=== PATIENT | male | born 1960 | race Caucasian/White ===

== ENCOUNTER 2017-01-06 08:34 | Emergency (ER) | payer OTHER ==
[~2017-01-06] VITALS: Ht 180.3 cm; Wt 104.5 kg
[2017-01-06 08:58] VITALS: BP 154/102; PULSE 75; RESP 15; O2SAT 100
--- NOTE | 2017-01-06 09:22 | ED.REPORT ---
HPI-Back Pain 40 and Over Date of Service Jan 06, 2017 ED Provider: Toan Luke MD 56 year old male with a remote history of L1-L3 spinous process fractures 25 years ago and recurrent exacerbation presents to the ER accompanied by his with acute on chronic back pain onset last night while putting lights on his trailer. He states that this activity involved getting on and off his knees, bending, crawling on the ground, laying under the trailer, for about 3 hours. Symptoms have worsened over night with increasingly frequent episodes of muscle spasm and stiffness. Patient denies numbness and weakness of the extremities. Typically he is able to manage his pain at home, but symptoms today are far more severe than his usual exacerbations. Nursing Notes Stated Complaint: SEVERE BACK PAIN/SPASMS Chief Complaint: Back Pain or Injury Nursing Notes Reviewed: Yes Allergies: Coded Allergies: No Known Allergies (Unverified Allergy, Unknown, 01/06/17) Scheduled PRN Cyclobenzaprine (Cyclobenzaprine) 5 Mg Tablet 5 MG PO HS PRN PRN Spasm General Time Seen by MD: 09:21 Chief Complaint Back pain, Muscle spasm Hx Obtained From: Patient Arrived By: Walk-in Sudden in Onset?: Yes Onset Occurred: Yesterday Symptom Duration: Since onset Caused by: Aggravated old injury Location: : Spinal lumbar area Quality: Painful Severity: Current: Severe Severity: Maximum: Severe Associated with: Denies: Inability to walk, Incontinence bladder, Incontinence bowel, Numbness both low ext, Weakness both lower ext Pertinent Negative: Pt denies other symptoms Exacerbated by: Bending, Movement, Twisting Pertinent Negative: Relieved by nothing Similar Sx Previous: Yes Past Medical History Past Medical History 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 Physical Exam Initial Vital Signs Vital Signs (First) Date Time Temp Pulse Resp B/P Pulse Ox O2 Delivery O2 Flow Rate FiO2 01/06/17 08:58 36.2 75 15 154/102 100 Room Air Initial VS: Reviewed Head / Eyes: Atraumatic, Normocephalic Neck: Supple, Non-tender, Full range of motion Extremities: Vascular intact, Neuro intact, No swelling, No tenderness Skin: Warm, Dry, No cyanosis Psychiatric: Mood/affect normal, Behavior normal, Normal thought content General/Constitutional: Awake, Alert, Well developed, Well nourished Appearance / Presentation: Positive: In pain, Uncomfortable Respiratory / Chest: Breath sounds NL, Breath sounds = bilat, No respiratory distress, No rales, No rhonchi, No wheezing Cardiovascular: Heart rate NL, Regular rhythm, Heart sounds NL, No murmurs, Peripheral circulation NL Abdomen: Soft, Non-tender, No guarding, No rebound, No distention, No palpable mass, No pulsatile mass Back: Full range of motion, No midline vertebral tend Flank / Spine / Paraspinal: Positive: Lumbar paraspinal tend... (Left, Diffuse) Neurologic: Oriented X3, Speech NL, No motor deficits, No sensory deficits, Reflexes equal bilat Re-Eval/Medical Decision Med Decision/Clinical Course 56 year old male with a remote history of L1-L3 spinous process fractures 25 years ago and recurrent exacerbation presents to the ER accompanied by his with acute on chronic back pain onset last night while putting lights on his trailer. He states that this activity involved getting on and off his knees, bending, crawling on the ground, laying under the trailer, for about 3 hours. Symptoms have worsened over night with increasingly frequent episodes of muscle spasm and stiffness. Daily received, the patient is afebrile stable vital signs and in no apparent distress. Patient was treated with 10mg Flexeril and 30 of intramuscular Toradol. He reported moderate improvement. Our primary and secondary assessment reveals an awake, alert patient in no acute distress. Hemodynamically stable and afebrile. Exam reveals normal neurologic exam of the lower extremities. Given this immunocompetent, afebrile, patient's history and exam, suspect muscle strain or spasm. No concerning signs or symptoms suggestive of cauda equina, cord compression, epidural abscess or other neurologic emergency. History not suggestive of referred intraabdominal pathology or vascular emergency. There is no history of significant trauma, fever, incontinence, unexplained weight loss, cancer history, long-term steroid use or IV drug use. I do not feel imaging is warranted at this time. Given the patient's workup, feel they are safe for discharge with conservative management. I have prescribed Flexeril, ibuprofen and have discussed with the patient results of workup, indications for return including: motor weakness in the lower extremities and/or bowel or bladder incontinence. Also emphasized the need for PCP follow up. They understand and agree with the plan. Re-Evaluation/Progress : Time of Eval: 10:49 Re-Evaluation/Progress Note: Discussed physical examination findings and plan to discharge. Patient is amenable to the plan. Return precautions given. All other questions addressed. Counseled Regarding: Diagnosis, Need for follow-up, When/why to return to ED Discharge & Departure Impression: Primary Impression: Low back pain Chronicity: acute Back pain laterality: unspecified Sciatica presence: without sciatica Qualified Code: M54.5 - Low back pain Additional Impressions: History of back injury Muscle spasm of back Disposition: Home Discharge Condition All VS Reviewed: Yes Condition: Stable Patient Instructions: Low Back Strain (ED) Additional Instructions: Thank you for seeking care at emergency room. It is difficult for us to make definitive diagnoses in the ED but we believe that you are experiencing exacerbation of chronic back pain. Our primary goal today in the ED was to evaluate you for any life-threatening conditions. Your evaluation was reassuring. You will be discharged with a prescription for Flexeril. Please take as directed. Do not consume alcohol or drive while taking Flexeril. Take ibuprofen 600mg three times daily for pain. You can continue to alternate hot and cold packs to relieve symptoms.. You should follow-up with your primary doctor this week. You should return to the ED immediately if you develop worsening pain, worsening weakness of your arms or legs, numbness of the groin area, incontinence of urine or stool, or any other concerning signs or symptoms. Thank you for letting us partake in your care today. Referrals: Luis Antonio Faye MD (PCP) [facility] Portions of this note were transcribed by Jolynn Cr. I, Dr. Luke, personally performed the history, physical exam and medical decision-making; I reviewed and confirmed the accuracy of the information in the transcribed note. Signed by: Tegan Ocasio, 01/06/2017 and 11:07 copies to: Luis Antonio Faye MD, Beck O MD Jan 06, 2017 09:22 JOLYNN CR Jan 06, 2017 10:31
[2017-01-06] MEDS ORDERED: CYCL5TAB PO (10:28)
[2017-01-06 11:17] VITALS: BP 141/94; PULSE 65; RESP 16; O2SAT 98
== END 2017-01-06 11:22 | disposition home or self-care (01) ==
LOC: SED 08:34
DX: M54.5 Low back pain (principal); M62.830 Muscle spasm of back; I10 Essential (primary) hypertension; Z87.828 Personal history of other (healed) physical injury and trauma; Z87.891 Personal history of nicotine dependence